=== PATIENT | female | born 1985 | race American Indian/Alaskan Native ===

== ENCOUNTER 2018-06-20 11:38 | Emergency (ER) | payer OTHER, MEDICAID ==
[2018-06-20 12:20] VITALS: BP 144/93
[2018-06-20 13:21] LABS: HCG Qualitative,Urine Negative (Negative)
[2018-06-20] MEDS ORDERED: ULTRAM PO ONE (16:52)
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
== END 2018-06-20 17:04 | disposition home or self-care (01) ==
LOC: ED 11:38
DX: S16.1XXA Strain of muscle, fascia and tendon at neck level, initial encounter (principal); F17.200 Nicotine dependence, unspecified, uncomplicated; Z88.5 Allergy status to narcotic agent; V49.49XA Driver injured in collision with other motor vehicles in traffic accident, initial encounter; Y93.89 Activity, other specified; Y92.89 Other specified places as the place of occurrence of the external cause; Y99.8 Other external cause status
CPT/HCPCS: 81025; 99283